=== PATIENT | female | born 1930 | race Caucasian/White ===

== ENCOUNTER → 2017-12-03 | Outpatient (CLI) | payer MEDICARE ==
--- NOTE | 2017-12-03 14:38 | Diagnostic Imaging Report ---
INDICATION: Pain. COMPARISON: Comparison made with prior examination 11/06/2017. FINDINGS: Bones are diffusely osteopenic. There is some degenerative change along the distal aspect of the scaphoid. The previously described scaphoid fracture appears to be in satisfactory alignment. There is no other acute fracture or dislocation. IMPRESSION: 1. Stable alignment of the subacute triquetral fracture with some callus formation. 2. Degenerative changes along the distal aspect of the scaphoid. 3. Diffuse osteopenia. Dictated by: Dictated on workstation # [id number]
== END ==
LOC: RAD 14:09
PROVIDERS: ATTEND Nurse Practitioner Family
DX: M25.731 Osteophyte, right wrist (principal); S62.111 Displaced fracture of triquetrum [cuneiform] bone, right wrist; M19.031 Primary osteoarthritis, right wrist; M85.88 Other specified disorders of bone density and structure, other site
CPT/HCPCS: 73110

== ENCOUNTER → 2018-05-16 | Outpatient (CLI) | payer MEDICARE ==
--- NOTE | 2018-05-16 11:33 | Diagnostic Imaging Report ---
INDICATION: Postmenopausal screening for osteoporosis. COMPARISON: None FINDINGS: AP Spine L1-L4: [BMD (g/cm2): 0.924] [T-Score: -2.3] [Z-Score: -0.6] [BMD Previous: 0.869] [BMD % Change: 6.3] LT Hip Neck: [BMD (g/cm2): 0.694] [T-Score: -2.5] [Z-Score: -0.2] LT Hip Total: [BMD (g/cm2):0.654] [T-Score:-2.8] [Z-Score: -0.7] [BMD Previous: 0.764] [BMD % Change: na] RT Hip Neck: [BMD (g/cm2):0.642] [T-Score:-2.9] [Z-Score:-0.6] RT Hip Total: [BMD (g/cm2):0.609] [T-score:-3.2] [Z-Score:-1.0] [BMD Previous:0.738] [BMD % Change:na] *Indicates significant change from prior examination based on 95% confidence level. World Health Organization criteria for BMD interpretation classify patients as Normal (T-score at or above -1.0), Osteopenic (T-score between -1.0 and -2.5) or Osteoporotic (T-score at or below -2.5). LIMITATIONS AND MODIFICATION: None. FRACTURE RISK (FRAX SCORE): The ten year probability of (%): Major Osteoporotic Fracture: [25] Hip Fracture: [10] IMPRESSION: 1. Osteoporosis. 2. Baseline examination. 3. See below National Osteoporosis Foundation guidelines on when to potentially initiate pharmacologic therapy. Based on the National Osteoporosis Foundation Guidelines, pharmacologic treatment should be initiated in any of the following, unless clinical conditions suggest otherwise: * Any patient with prior fragility fracture of the hip or vertebrae. A spine fracture indicates 5X risk for subsequent spine fracture and 2X risk for subsequent hip fracture. * Osteoporosis (T-score <-2.5). * Postmenopausal women and men age 50 and older with low bone mass/osteopenia (T-score between -1.0 and -2.5) by DXA and 10-year major osteoporotic fracture greater than 20% or a 10-year probability of hip fracture greater than 3%. These fracture risks are supplied above in the FRAX score, if applicable. * Clinician judgement and/or patient preferences may indicate treatment for people with 10-year fracture probabilities above or below these levels. Dictated by: Dictated on workstation # [id number]
== END ==
LOC: RAD 09:32
PROVIDERS: ATTEND Nurse Practitioner Family
DX: Z13.820 Encounter for screening for osteoporosis (principal); M89.9 Disorder of bone, unspecified; M81.0 Age-related osteoporosis without current pathological fracture; Z78.0 Asymptomatic menopausal state
CPT/HCPCS: 77080

== ENCOUNTER 2021-03-20 09:23 | Emergency (ER) | payer MEDICARE ==
[~2021-03-20] VITALS: Ht 160 cm; Wt 58.9 kg
--- NOTE | 2021-03-20 11:27 | ED Fall/Injury ---
General Chief Complaint: Trauma-Non Activation Stated Complaint: FELL, BUSTED LIP,L HAND/ARM LAC BRUSING Nursing Triage Note: PT PRESENTS TO ED VIA POV FROM HOME WITH COMPLAINTS OF FALL WHEN WALKING ON . PT HAS BRUISING/SWELLING AND SKIN TEAR TO L HAND, BRUISING/SWELLING AND LAC TO L SIDE LOWER FACE, AND BRUISING TO L KNEE. (JESSICA GRULLON) History of Present Illness Date Seen by Provider: Mar 20, 2021 Time Seen by Provider: 11:00 Initial Comments 89 year old female fell on 03/17/21, while crossing the street. She denies head injury or LOC, she is not taking anitcoagulants. She complains of pain and bruising in her right thumb, abrasion to her left knee, abrasion and pain to her left hand on the dorsal surface. She has been applying antibiotics and using Band-Aids. She is unsure of her last tetanus vaccine. She has been ambulatory without pain and able to continue normal activities. Occurred: last week Severity: mild Injuries/Pain Location: upper extremity (Right thumb, left hand.), lower extremity (Left knee anterior) Context: lost balance Loss of Consciousness: no loss of consciousness Associated Symptoms (Fall): No Abdominal Pain, No Chest Pain, No Confusion, No Dizziness, No Headache, No Lightheadedness, No Muscle Spasms, No Nausea/Vomiting, No Neck Pain, No Ringing in Ears, No Seizures, No Shortness of Air, No Slurred Speech, No Trouble Walking, No Vision Changes (JESSICA GRULLON) Allergies and Home Medications Allergies Coded Allergies: No Known Drug Allergies (Unverified , 08/10/10) Patient Home Medication List Home Medication List Reviewed: Yes (JESSICA GRULLON) Cephalexin (Cephalexin) 500 Mg Tablet, 500 MG PO TID Prescribed by: JESSICA GRULLON on 03/20/21 1226 Review of Systems Review of Systems Constitutional: no symptoms reported, see HPI Musculoskeletal: see HPI; No back pain; joint pain (Left hand and left knee); No neck pain Skin: see HPI, other (Abrasions, left hand and left knee) (JESSICA GRULLON) All Other Systems Reviewed Negative Unless Noted: Yes (JESSICA GRULLON) Past Emzkdtq-Obvysi-Xrmntw Hx Patient Social History Tobacco Use?: No Substance use?: No Alcohol Use?: No Pt feels they are or have been: No (JESSICA GRULLON) Immunizations Up To Date First/Initial COVID19 Vaccinat: JULY 2020 Second COVID19 Vaccination Horace: AUGUST 2020 COVID19 Vaccine Casket Upholsterer: JAMES (JESSICA GRULLON) Past Medical History Surgery/Hospitalization HX: PMH: HTN, SX: NONE (JESSICA GRULLON) Family Medical History Reviewed Nursing Family Hx (JESSICA GRULLON) Physical Exam Vital Signs Vital Signs - First Documented (MAR TATE MD) Vital Signs Capillary Refill : Less Than 3 Seconds (JESSICA GRULLON) Height, Weight, BMI Height: '" Weight: lbs. oz. kg; 23.00 BMI Method: General Appearance: WD/WN, no apparent distress HEENT: PERRL/EOMI, TMs normal, pharynx normal, other (Superficial abrasion to the lower lip on the left side. no fractured teeth, one tooth loose but secured, bottom center) Neck: non-tender, full range of motion, supple, normal inspection Cardiovascular: normal peripheral pulses, regular rate, rhythm Respiratory: chest non-tender, lungs clear, normal breath sounds Gastrointestinal: normal bowel sounds, non tender, soft Extremities: normal range of motion, no pedal edema, no calf tenderness, normal capillary refill, other (abrasion to dorsum left hand, non tender to wrist, hand and digits, except over abrasion. No noted foreign body, wound thoroughly cleaned and sterile dressing applied. ) Neurologic/Psychiatric: no motor/sensory deficits, alert, normal mood/affect, oriented x 3 Skin: normal color, warm/dry, other (Superficial abrasions, no active bleeding or drainage noted to lower lip, left hand on the dorsal surface, and anterior left knee.) (JESSICA GRULLON) Sally Coma Score Best Eye Response: (4) Open Spontaneously Best Verbal Response: (5) Oriented Best Motor Response: (6) Obeys Commands Sally Total: 15 (JESSICA GRULLON) Progress/Results/Core Measures Results/Orders Medications Given in ED Current Medications Medications Dose Ordered Sig/Natacha Route Start Time Stop Time Status Last Admin Dose Admin Diphtheria/ Tetanus/Acell Pertussis 0.5 ml ONCE ONCE IM 03/20/21 11:30 03/20/21 11:31 DC 03/20/21 12:11 0.5 ML (MAR TATE MD) Vital Signs/I&O 03/20/21 03/20/21 03/20/21 09:47 09:47 12:36 Temp 36.7 36.7 36.7 Pulse 64 64 70 Resp 18 18 18 B/P (MAP) 156/75 (102) 156/75 (102) 156/75 Pulse Ox 98 98 99 (MAR TATE MD) Blood Pressure Mean: 102 Diagnostic Imaging Diagonstic Imaging: Xray Comments NAME: BRYAN JULES MED REC#: [id number] PT STATUS: REG ER : 1930 PHYSICIAN: JESSICA GRULLON ADMIT DATE: 03/20/21/ER Signed Date of Exam:03/20/21 KNEE, LEFT, 3 VIEWS CLINICAL HISTORY: Fall. Left knee pain. COMPARISON: None. TECHNIQUE: 3 views of the left knee. FINDINGS: There is no acute fracture or dislocation of the left knee. Alignment is anatomic. The imaged joint spaces are preserved. No joint effusion is seen in the left knee. Vascular calcifications are noted in the popliteal fossa. IMPRESSION: 1. No acute fracture or dislocation in the left knee. No joint effusion. Dictated by: Dictated on workstation # [id number] Dict: 03/20/21 1154 Trans: 03/20/21 1158 [facility] [id number] Interpreted by: BLANCO KRAMER DO Electronically signed by: BLANCO KRAMER DO 03/20/21 1158 Reviewed: Reviewed by Mi Diagonstic Imaging: Xray Plain Films/CT/US/NM/MRI: hand Comments NAME: BRYAN JULES [employer] MED REC#: [id number] PT STATUS: REG ER : 1930 PHYSICIAN: JESSICA GRULLON ADMIT DATE: 03/20/21/ER Draft Date of Exam:03/20/21 HAND, LEFT, 3 VIEWS Indication: Hand pain COMPARISON: Imaging from same date TECHNIQUE: 3 radiograph left hand dated 03/20/2021 FINDINGS: Mild focal angulation is identified involving the base of the 5th digit proximal phalanx, concerning for a nondisplaced buckle fracture. No additional fracture or dislocation. No destructive osseous process. Carpal alignment is well-maintained. Several punctate radiopaque densities are seen overlying the soft tissues of the medial carpus. Soft tissue swelling is noted involving the dorsum of the hand. IMPRESSION: Findings suspect for a recent nondisplaced fracture involving the base of the 5th digit proximal phalanx. Punctate radiopaque densities overlying the dorsum of the hand overlying the carpus. Recommend direct visualization as this could relate to a small retained foreign bodies. Soft tissue swelling about the hand. Scattered degenerative changes. Dictated on workstation # [id number] Dict: 03/20/21 1202 Trans: 03/20/211210 [facility] [id number] Interpreted by: MILO OWENS MD Electronically signed by: Re evaluated left hand, no tenderness at 5th phalynx where questionable fx noted by Radiologist. Full ROM Resisted at MCP, PIP and DIP. No ecchymosis or swelling. Reviewed: Reviewed by Me Comments NAME: BRYAN JULES MED REC#: [id number] PT STATUS: REG ER : 1930 PHYSICIAN: JESSICA GRULLON ADMIT DATE: 03/20/21/ER Draft Date of Exam:03/20/21 FINGER(S) CLINICAL HISTORY: Fall. Right thumb pain. COMPARISON: 11/06/2017. TECHNIQUE: 3 views of the right fingers. FINDINGS: There is no acute fracture or dislocation of the right fingers. Alignment is anatomic. The imaged joint spaces are preserved. Generalized osteopenia is noted. IMPRESSION: 1. No acute fracture or dislocation in the right humerus. Dictated on workstation # [id number] Dict: 03/20/21 1202 Trans: 03/20/218 [facility] [id number] Interpreted by: BLANCO KRAMER DO Electronically signed by: Called Radiology, to edit dictation, Impression should be no d/l or fx of right thumb. Reviewed: Reviewed by Me (JESSICA GRULLON) Departure Impression Primary Impression: Fall Qualified Codes: W19.XXXA - Unspecified fall, initial encounter Additional Impressions: Abrasions of multiple sites Cellulitis of left hand Disposition: HOME, SELF-CARE Condition: Improved Departure-Patient Inst. Decision time for Depature: 12:05 (JESSICA GRULLON) Referrals: MAKENNA WOODS MD (PCP/Family) Primary Care Physician Patient Instructions: Contusion (DC), Skin Abrasions (DC) Add. Discharge Instructions: Clean abrasions with peroxide and apply triple antibiotic ointment 3 times daily. Take antibiotics as prescribed. Use cane for ambulation to prevent falls. Follow-up with your primary care provider if symptoms are not improving or worsen. Return to the emergency department for new, urgent healthcare needs. All discharge instructions reviewed with patient and/or family. Voiced understanding. Scripts Cephalexin (Cephalexin) 500 Mg Tablet 500 MG PO TID, #15 TAB 0 Refills Prov: JESSICA GRULLON 03/20/21 ATTENDING PHYSICIAN NOTE: I was physically present as attending physician in the emergency department during the care of this patient, but I was not directly involved in the decision making or delivery of care for this patient. (MAR TATE MD) Copy Copies To 1: MAKENNA WOODS MD, AMY ARNP Mar 20, 2021 11:27 MAR TATE MD Mar 20, 2021 15:33
[2021-03-20] MEDS ORDERED: TETANUS,DIPTH,PERTUSS P/F (BOOSTRIX) 0.5 ML VIAL IM ONE (11:30)
--- NOTE | 2021-03-20 11:56 | Diagnostic Imaging Report ---
CLINICAL HISTORY: Fall. Left knee pain. COMPARISON: None. TECHNIQUE: 3 views of the left knee. FINDINGS: There is no acute fracture or dislocation of the left knee. Alignment is anatomic. The imaged joint spaces are preserved. No joint effusion is seen in the left knee. Vascular calcifications are noted in the popliteal fossa. IMPRESSION: 1. No acute fracture or dislocation in the left knee. No joint effusion. Dictated by: Dictated on workstation # [id number]
--- NOTE | 2021-03-20 12:09 | Diagnostic Imaging Report ---
CLINICAL HISTORY: Fall. Right thumb pain. COMPARISON: 11/06/2017. TECHNIQUE: 3 views of the right fingers. FINDINGS: There is no acute fracture or dislocation of the right fingers. Alignment is anatomic. The imaged joint spaces are preserved. Generalized osteopenia is noted. IMPRESSION: 1. No acute fracture or dislocation in the right humerus. Dictated by: Dictated on workstation # [id number]
--- NOTE | 2021-03-20 12:12 | Diagnostic Imaging Report ---
Indication: Hand pain COMPARISON: Imaging from same date TECHNIQUE: 3 radiograph left hand dated 03/20/2021 FINDINGS: Mild focal angulation is identified involving the base of the 5th digit proximal phalanx, concerning for a nondisplaced buckle fracture. No additional fracture or dislocation. No destructive osseous process. Carpal alignment is well-maintained. Several punctate radiopaque densities are seen overlying the soft tissues of the medial carpus. Soft tissue swelling is noted involving the dorsum of the hand. IMPRESSION: Findings suspect for a recent nondisplaced fracture involving the base of the 5th digit proximal phalanx. Punctate radiopaque densities overlying the dorsum of the hand overlying the carpus. Recommend direct visualization as this could relate to a small retained foreign bodies. Soft tissue swelling about the hand. Scattered degenerative changes. Dictated by: Dictated on workstation # [id number]
[2021-03-20] MEDS ORDERED: CEPH500T PO (12:26)
[2021-03-20 12:36] VITALS: BP 156/75
== END 2021-03-20 12:36 | disposition home or self-care (01) ==
LOC: EDUNIT# 09:23 → ER 09:25
DX: S60.011A Contusion of right thumb without damage to nail, initial encounter (principal); S00.511A Abrasion of lip, initial encounter; S60.512A Abrasion of left hand, initial encounter; S80.212A Abrasion, left knee, initial encounter; L03.114 Cellulitis of left upper limb; I10 Essential (primary) hypertension; Z23 Encounter for immunization; W19.XXXA Unspecified fall, initial encounter
CPT/HCPCS: 73130; 73140; 73562; 90471; 90715

== ENCOUNTER 2021-10-28 10:44 | Emergency (ER) | payer MEDICARE ==
[~2021-10-28] VITALS: Ht 160 cm; Wt 55.0 kg
[~2021-10-28 10:44] MED LIST: CEPH500T PO
--- NOTE | 2021-10-28 11:36 | ED Fall/Injury ---
General Chief Complaint: Trauma-Non Activation Stated Complaint: FALL - HEAD PAIN - L WRIST PAIN / LAC Nursing Triage Note: Pt was walking on chat when she tripped and fell; pt has hematoma to her head, left arm, shoulder, and left leg. Pt denies LOC and has GCS of 15. Source: patient Exam Limitations: no limitations (ESTHER GARCIA) History of Present Illness Date Seen by Provider: Oct 28, 2021 Time Seen by Provider: 11:31 Initial Comments This is an 89 year old female that presents for evaluation of a fall. She states she was walking and tripped on a sidewalk and fell, striking her left elbow/knee and forehead on the concrete. She went to her primary care doctor's office and they cleaned up her wounds and then referred her here for further evaluation. She states that she did not was consciousness and her tetanus is up-to-date. She currently rates her pain as a dull 3 out of 10 on her elbow and forehead and states that her knee is not really bothering her at this time. She denies chest pain, dizziness, lightheadedness, blurry vision, double vision. Occurred: just prior to arrival Severity: mild Injuries/Pain Location: head, upper extremity, lower extremity Context: tripped Loss of Consciousness: no loss of consciousness (ESTHER GARCIA) Allergies and Home Medications Allergies Coded Allergies: No Known Drug Allergies (Unverified , 08/10/10) Patient Home Medication List Home Medication List Reviewed: Yes (ESTHER GARCIA) Cephalexin (Cephalexin) 500 Mg Tablet, 500 MG PO TID Prescribed by: JESSICA GRULLON on 03/20/21 1226 Review of Systems Review of Systems Constitutional: no symptoms reported Eyes: Other (Ecchymosis to the left left forehead) Ears, Nose, Mouth, Throat: no symptoms reported Respiratory: no symptoms reported Cardiovascular: no symptoms reported Genitourinary: no symptoms reported Musculoskeletal: other (Ecchymosis and abrasions to the left elbow and left kne e) Skin: other (Abrasions to the left elbow and left anterior knee) (ESTHER GARCIA) Past Tnfbtdw-Xtcywi-Nfttmg Hx Patient Social History Tobacco Use?: No Smoking Status: Never a Smoker Smokeless Tobacco Frequency: Never a User Use of E-Cig and/or Vaping Severiano: Never a User Substance use?: No Alcohol Use?: No Pt feels they are or have been: No (ESTHER GARCIA) Immunizations Up To Date First/Initial COVID19 Vaccinat: JULY 2020 Second COVID19 Vaccination Horace: AUGUST 2020 (ESTHER GARCIA) Past Medical History Surgery/Hospitalization HX: PMH: HTN, SX: NONE (ESTHER GARCIA) Physical Exam Vital Signs Vital Signs - First Documented 10/28/21 10:57 Temp 36.0 Pulse 66 Resp 18 B/P (MAP) 169/83 (111) Pulse Ox 99 O2 Delivery Room Air (MAR TATE MD) Vital Signs Capillary Refill : Less Than 3 Seconds (ESTHER GARCIA) Height, Weight, BMI Height: '" Weight: lbs. oz. kg; 21.00 BMI Method: General Appearance: WD/WN, no apparent distress HEENT: PERRL/EOMI, TMs normal, pharynx normal, other (Large frontal hematoma to the left anterior lateral scalp) Neck: non-tender, full range of motion, supple Cardiovascular: no edema Respiratory: chest non-tender, lungs clear Gastrointestinal: normal bowel sounds, non tender Back: normal inspection, no CVA tenderness, no vertebral tenderness Extremities: other (Large skin tear to the left posterior elbow without obvious debris. Minimal bony tenderness. Numerous abrasions to the left anterior knee with a small skin tear as well) Neurologic/Psychiatric: fine arts chair II-XII nml as tested, oriented x 3 Skin: normal color (ESTHER GARCIA) Progress/Results/Core Measures Results/Orders My Orders Orders - MAR TATE MD Ct Head/Cervical Spine Wo (10/28/21 10:52) (MAR TATE MD) Vital Signs/I&O 10/28/21 10/28/21 10:57 13:12 Temp 36.0 36.0 Pulse 66 66 Resp 18 18 B/P (MAP) 169/83 (111) 169/83 Pulse Ox 99 99 O2 Delivery Room Air Room Air (MAR TATE MD) Blood Pressure Mean: 111 Departure Communication (PCP) Patient is afebrile, nontoxic and in no acute distress. Wounds will be irrigated and dressed with nonstick dressings. Wound care discussed with patient. CT Head/Cervical Spine negative per radiologist. Xray Left elbow/knee negative per radiologist. (ESTHER GARCIA) Impression Primary Impression: Closed head injury Additional Impressions: Skin tear of elbow without complication Scalp hematoma Disposition: 01 HOME, SELF-CARE Condition: Stable Departure-Patient Inst. Decision time for Depature: 12:56 (ESTHER GARCIA) Referrals: MAKENNA WOODS MD (PCP/Family) Primary Care Physician Patient Instructions: Minor Head Injury (DC), Wound Care (DC) Add. Discharge Instructions: Please keep your wounds clean and dry. Follow up with your primary care provider in 2-4 days for a wound recheck. Return to the ER if you have any changes or worsening of symptoms. All discharge instructions reviewed with patient and/or family. Voiced understanding. ATTENDING PHYSICIAN NOTE: I was physically present as attending physician in the emergency department during the care of this patient. I placed the initial order for CT head and cervical spine after reviewing nursing triage notes., but I was not otherwise directly involved in the decision making or delivery of care for this patient. (MAR TATE MD) ESTHER GARCIA Oct 28, 2021 11:35 MAR TATE MD Oct 28, 2021 20:55
--- NOTE | 2021-10-28 12:30 | Diagnostic Imaging Report ---
PROCEDURE: CT head and CT cervical spine without contrast. TECHNIQUE: Multiple contiguous axial images were obtained through the brain and cervical spine without the use of intravenous contrast. Sagittal and coronal reformations through the cervical spine were then performed. Auto Exposure Controls were utilized during the CT exam to meet ALARA standards for radiation dose reduction. INDICATION: Fall, bump on head. CT HEAD: There is left supraorbital frontal scalp injury. Underlying bony structures appeared intact. There is no hemo-sinus. There is an old-appearing deformity to the medial right orbital wall at the lamina papyracea, this is presumed chronic, no hemo-sinus. There is no hemorrhage and there are no acute extra-axial fluid collections. There is no focal nor generalized cerebral edema. There is no evidence for an elevation of the intracranial pressures. The basilar cisterns are patent. No mass or mass effect. CT CERVICAL body heights within normal limits. The alignment unremarkable. There is no facet joint dislocation. No fracture or acute endplate irregularity. Craniocervical relationship in the central skull base appeared intact. No fracture or paraspinal hemorrhage. The prevertebral space normal. There are carotid atherosclerotic vascular calcifications. Pulmonary apices and thoracic inlet nonacute. IMPRESSION: CT HEAD: 1. Left supraorbital frontal soft tissue injury but no fracture or hemo-sinus. Old-appearing medial right orbital deformity at the lamina papyracea is believed chronic. 2. Brain showed no hemorrhage, edema or acute finding. CT CERVICAL: 1. Degenerative changes without fracture or traumatic malalignment. Dictated by: Dictated on workstation # [id number]
--- NOTE | 2021-10-28 12:34 | Diagnostic Imaging Report ---
Indication: Fall, pain COMPARISON: None available. TECHNIQUE: 3 radiographs of the left elbow dated 10/28/2021. FINDINGS: No acute fracture or dislocation. No destructive osseous process. No elbow joint effusion. No suspicious radiopaque foreign body. IMPRESSION: No acute osseous abnormality. Dictated by: Dictated on workstation # [id number]
--- NOTE | 2021-10-28 12:35 | Diagnostic Imaging Report ---
INDICATION: Fall, pain COMPARISON: 03/20/2021 TECHNIQUE: 3 radiographs of the left knee dated 10/28/2021 FINDINGS: No acute fracture or dislocation. No destructive osseous process. Minimal joint space narrowing for age. No significant osteophytosis. No significant joint effusion. Mild background vascular calcifications. IMPRESSION: No acute osseous abnormality with minimal degenerative changes for age. Dictated by: Dictated on workstation # [id number]
[2021-10-28 13:12] VITALS: BP 169/83
== END 2021-10-28 13:13 | disposition home or self-care (01) ==
LOC: EDUNIT# 10:44 → ER 10:45
DX: S09.90XA Unspecified injury of head, initial encounter (principal); S51.002A Unspecified open wound of left elbow, initial encounter; S81.002A Unspecified open wound, left knee, initial encounter; S00.03XA Contusion of scalp, initial encounter; W01.0XXA Fall on same level from slipping, tripping and stumbling without subsequent striking against object, initial encounter; Y92.480 Sidewalk as the place of occurrence of the external cause
CPT/HCPCS: 70450; 72125; 73080; 73562

== ENCOUNTER 2021-10-30 09:16 | Outpatient (RCR) | payer MEDICARE ==
[~2021-10-30] VITALS: Ht 157.5 cm; Wt 55.0 kg
[2021-10-30 09:57] VITALS: BP 138/65
== END 2021-11-10 | disposition home or self-care (01) ==
LOC: 4THo 09:16
PROVIDERS: ATTEND Family Medicine
DX: Z48.00 Encounter for change or removal of nonsurgical wound dressing (principal)